=== PATIENT | female | born 1970 | race Asian ===

== ENCOUNTER 2017-08-17 18:59 | Emergency (ER) | payer BC ==
[~2017-08-17] VITALS: Ht 172.7 cm; Wt 81.7 kg
[~2017-08-17 18:59] MED LIST: ALBU90OI INH; ALBU90OI6; CODGUAEL PO; DOXY100 PO; FLUSAL1005 IH; IBUP800 PO; MICO2TCA TOP; NAPR500 PO; OXYACE5T PO; PROCODE120 PO; Pepcid40 MG PO; SUCR1 PO; TRIAOI IH; Zofran Odt4 MG PO
[2017-08-17] MEDS ORDERED: IBUP600 PO (20:21)
[2017-08-17] MEDS ORDERED: CRUTCH3 XX (20:21)
[2018-04-08] MEDS ORDERED: Percocet 10-321 EACH (08:35)
[2018-04-08] MEDS ORDERED: Esgic Tablet1 EACH PO (08:35)
[2018-04-08] MEDS ORDERED: Maxalt10 MG (08:36)
[2018-04-08] MEDS ORDERED: PROM25 PO (11:03)
[2018-04-08] MEDS ORDERED: KETO10 PO (11:03)
[2018-05-03] MEDS ORDERED: SUMA25 PO (09:42)
[2018-05-03] MEDS ORDERED: REPLESTA50000 UNIT PO (09:43)
[2018-05-03] MEDS ORDERED: IBUP800 PO (09:43)
[2018-05-03] MEDS ORDERED: HYDR1TAB94 PO (09:44)
[2018-05-04] MEDS ORDERED: MAGN84 (13:29)
[2018-05-04] MEDS ORDERED: ALBU90OI (13:30)
[2018-05-04] MEDS ORDERED: PROM25 (13:30)
== END 2017-08-17 20:28 | disposition home or self-care (01) ==
LOC: ER 18:59
DX: S93.402A Sprain of unspecified ligament of left ankle, initial encounter (principal); J45.909 Unspecified asthma, uncomplicated; Z88.5 Allergy status to narcotic agent; Z79.899 Other long term (current) drug therapy; Z79.891 Long term (current) use of opiate analgesic; Z87.891 Personal history of nicotine dependence; W01.0XXA Fall on same level from slipping, tripping and stumbling without subsequent striking against object, initial encounter
CPT/HCPCS: 29505; 73610; 73630; 99283

== ENCOUNTER → 2017-08-28 | Outpatient (CLI) | payer BC ==
[~2017-08-28] MED LIST changes: +ALBU90OI; +CRUTCH3 XX; +Esgic Tablet1 EACH PO; +HYDR1TAB94 PO; +IBUP600 PO; +KETO10 PO; +MAGN84; +Maxalt10 MG; +PROM25; +PROM25 PO; +Percocet 10-321 EACH; +REPLESTA50000 UNIT PO; +SUMA25 PO
[2017-08-29 13:55] LABS: HPV Genotype 16 Not Detected (NOTDET); HPV Genotype 18 Not Detected (NOTDET)
[2017-09-08 13:39] LABS: HPV High Risk Other Not Detected (NOTDET)
== END | disposition home or self-care (01) ==
LOC: OLS 11:02
PROVIDERS: Nurse Practitioner Women's Health
DX: Z12.72 Encounter for screening for malignant neoplasm of vagina (principal); Z91.89 Other specified personal risk factors, not elsewhere classified
CPT/HCPCS: 87624; G0123

== ENCOUNTER → 2019-02-03 | Outpatient (CLI) | payer BC ==
[2019-02-07 15:14] LABS: HPV 16 Negative (Negative); HPV 18 Negative (Negative); HPV OTHER HR TYPES Negative (Negative)
== END | disposition home or self-care (01) ==
LOC: LAB SHORT 15:41 → LAB 15:41
PROVIDERS: Obstetrics & Gynecology Gynecology
DX: Z12.72 Encounter for screening for malignant neoplasm of vagina (principal)
CPT/HCPCS: 87624; G0123

== ENCOUNTER → 2021-03-14 | Outpatient (CLI) | payer SELFPAY ==
[2021-03-14 14:14] LABS: Campylobacter Sp Not Detected (NOT DETECT); Cryptosporidium Not Detected (NOT DETECT); Cyclospora Cayetanensis Not Detected (NOT DETECT); E. Coli O157 Not Detected (NOT DETECT); Enteroaggregative E. coli-EAEC Not Detected (NOT DETECT); Enteropathogenic E. coli-EPEC Not Detected (NOT DETECT); Enterotoxigenic E. coli-ETEC Not Detected (NOT DETECT); Plesiomonas Shigelloides Not Detected (NOT DETECT); Salmonella Sp Not Detected (NOT DETECT); Shiga Toxin-prod E. coli-STEC Not Detected (NOT DETECT); Shigella/Enteroin E. coli-EIEC Not Detected (NOT DETECT); Vibrio Cholerae Not Detected (NOT DETECT); Vibrio Sp Not Detected (NOT DETECT); Yersinia Enterocolitica Not Detected (NOT DETECT)
[2021-03-14 14:15] LABS: Adenovirus F 40/41 Not Detected (NOT DETECT); Astrovirus Not Detected (NOT DETECT); Entamoeba Histolytica Not Detected (NOT DETECT); Giardia Lamblia Not Detected (NOT DETECT); Norovirus GI/GII Not Detected (NOT DETECT); Rotavirus A Not Detected (NOT DETECT); Sapovirus Not Detected (NOT DETECT)
== END | disposition home or self-care (01) ==
LOC: LAB 06:25 → LAB SHORT 06:25 → LAB FUT 03-11 10:45 → EDSTATUS 03-11 10:45
PROVIDERS: Physician Assistant
DX: R10.13 Epigastric pain (principal); R19.7 Diarrhea, unspecified
CPT/HCPCS: 0097U; 87324

== ENCOUNTER 2024-08-03 06:41 | Day surgery (SDC) | payer OTHER ==
[~2024-08-03] VITALS: Ht 175.3 cm; Wt 104.0 kg
[~2024-08-03 06:41] MED LIST changes: +Lactated Ringer's 1,000 ML IV SCH; -PROM25; +PROP10 PO; +Prinivil10 MG PO; -REPLESTA50000 UNIT PO; +VITAMIN D32000 UNIT PO
[2024-08-03 07:41] VITALS: BP 123/76
--- NOTE | 2024-08-03 07:49 | NUR ---
08/03/24 [address] FRITZ, SEE ANESTHESIA RECORDS.
--- NOTE | 2024-08-03 07:52 | NUR ---
History, Chart, Medications and Allergies reviewed before start of procedure. Pre-Op teaching done. Pt verbalizes understanding. Patient states colon prep results DARK YELLOW. Patient States Post-Procedure ride home has been arranged WITH
[2024-08-03] MEDS ORDERED: propofoL 40 ML IV ONE (08:11)
[2024-08-03 08:32] VITALS: BP 109/63
[2024-08-03 08:36] VITALS: BP 110/74
[2024-08-03] MEDS ORDERED: Midazolam HCl 1MG / ML 2ML Vial ONE (08:37)
[2024-08-03 08:45] VITALS: BP 110/90
[2024-08-03 09:00] VITALS: BP 110/79
[2024-08-03 09:15] VITALS: BP 97/66
--- NOTE | 2024-08-03 09:50 | NUR ---
DISCHARGE PT A&OX4/VSS/RA/TALKING/SITTING UP/N[place] PO H20, REPORTS FEELING BETTER JUST TIRED AND READY TO GO HOME; ANES SAW PT, DISCUSSED SITUATION, AND RELAYED THAT PT IS OK TO DC. 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
== END 2024-08-03 23:00 | disposition home or self-care (01) ==
LOC: ORSCMMR 06:41 → ORD 08:00 → ORSCMMR 23:00
PROVIDERS: Internal Medicine Gastroenterology
PROC: 0DBL8ZX Excision of Transverse Colon, Via Natural or Artificial Opening Endoscopic, Diagnostic (ICD-10-PCS; principal; 2024-08-03 08:00)
PROC: 0DBM8ZX Excision of Descending Colon, Via Natural or Artificial Opening Endoscopic, Diagnostic (ICD-10-PCS; principal; 2024-08-03 08:00)
DX: Z12.11 Encounter for screening for malignant neoplasm of colon (principal); Z80.0 Family history of malignant neoplasm of digestive organs; D12.3 Benign neoplasm of transverse colon; K63.5 Polyp of colon; R56.9 Unspecified convulsions; I10 Essential (primary) hypertension; J45.909 Unspecified asthma, uncomplicated; E66.9 Obesity, unspecified; Z68.33 Body mass index [BMI] 33.0-33.9, adult; Z79.899 Other long term (current) drug therapy
CPT/HCPCS: 88305; J2250; J2704; J7120